=== PATIENT | female | born 1960 | race African-American/Black ===

== ENCOUNTER 2017-10-16 11:56 | Emergency (ER) | payer OTHER ==
[~2017-10-16] VITALS: Ht 165.1 cm; Wt 90.0 kg
[~2017-10-16 11:56] MED LIST: ANTIDEPRESSANT PO; COZA100T PO
[2017-10-16 11:57] VITALS: BP 137/74; PULSE 99; RESP 18; TEMP 98.6; O2SAT 97
[2017-10-16] MEDS ORDERED: IOHEXOL 350 MG/ML 10 ML VIAL (for RAD DIAG) IVCONTRAST ONE (11:57)
[2017-10-16 13:01] LABS: AUTOMATED NEUTROPHIL # 5.9 TH/MM3 (1.8-7.7); BASOPHIL % 0.3 % (0.0-2.0); EOSINOPHIL # 0.2 TH/MM3 (0-0.4); EOSINOPHIL % 1.7 % (0.0-4.0); HEMATOCRIT 40.8 % (35.0-46.0); HEMOGLOBIN 13.6 GM/DL (11.6-15.3); LYMPH % 34.6 % (9.0-44.0); LYMPHOCYTE # 3.5 TH/MM3 (1.0-4.8); MEAN CELL VOLUME 85.9 FL (80.0-100.0); MEAN CORPUSCULAR HEMOGLOBIN 28.6 PG (27.0-34.0); MEAN CORPUSCULAR HGB CONC 33.3 % (32.0-36.0); MEAN PLATELET VOLUME 8.2 FL (7.0-11.0); MONO % 5.7 % (0.0-8.0); MONOCYTE # 0.6 TH/MM3 (0-0.9); NEUT % 57.7 % (16.0-70.0); PLATELET COUNT 339 TH/MM3 (150-450); RED BLOOD COUNT 4.75 MIL/MM3 (4.00-5.30); RED CELL DISTRIBUTION WIDTH 14.7 % (11.6-17.2); WHITE BLOOD COUNT 10.2 TH/MM3 (4.0-11.0)
[2017-10-16] MEDS ORDERED: METF500T PO (13:05)
[2017-10-16] MEDS ORDERED: METO50TA PO (13:05)
[2017-10-16] MEDS ORDERED: LOSA100T2 PO (13:05)
[2017-10-16] MEDS ORDERED: BUPR150T3 PO (13:05)
[2017-10-16 13:10] LABS: BACTERIA, URINE RARE /hpf; BILIRUBIN, URINE NEG (NEG); BLOOD, URINE NEG (NEG); GLUCOSE,URINE NEG (NEG); HYALINE CAST, URINE 42 /lpf (RARE); KETONE, URINE NEG (NEG); MUCUS URINE FEW /lpf (OCC); NITRITE,URINE NEG (NEG); PH, URINE 6.5 (5.0-8.5); SQUAMOUS EPITHELIAL CELL URINE 1 /hpf (0-5); TRANSITIONAL EPI CELLS, URINE <1 /hpf; URINE COLOR YELLOW (YELLW/STRAW); URINE LEUKOCYTE ESTERASE NEG (NEG)
--- NOTE | 2017-10-16 13:12 | PD ---
HPI Chief Complaint: Abdominal Pain Time Seen by Provider: 13:10 Travel History International Travel<30 days: No Contact w/Intl Traveler<30days: No Traveled to known affect area: No History of Present Illness HPI 57-year-old Afro-[place] female presents to emergency Department with several day history of diarrhea and increasing right lower abdominal pain with radiation to the right back. Patient states no significant fever or chills. She denies urinary symptoms she denies vaginal symptoms. She has had no blood in her stool. No vomiting but has had some nausea. She describes the pain as dull to sharp, and constant. Patient denies previous abdominal surgery. Pain is currently 7 out of 10. She has no known drug allergies. PFSH Past Medical History Depression: Yes Cardiovascular Problems: Yes (HTN) Diabetes: Yes Patient Takes Glucophage: Yes (10/16/16 0900) Diminished Hearing: No Hypertension: Yes ?: Not Menopausal: Yes : 3 Para: 2 Miscarriage: 1 Past Surgical History Oral Surgery: Yes Social History Alcohol Use: Yes (occ) Tobacco Use: Yes (1 PPD) Substance Use: No Allergies-Medications (Allergen,Severity, Reaction): Coded Allergies: No Known Allergies (Verified , 03/03/14) Reported Meds & Prescriptions Reported Meds & Active Scripts Active Reported Bupropion HCl ER 24 HR (Bupropion HCl) 150 Mg Tab 150 Mg PO BID Metoprolol Tartrate 50 Mg Tab 50 Mg PO DAILY Losartan-Hydrochlorothiazide 100-25 Mg Tab 1 Tab PO DAILY Metformin (Metformin HCl) 500 Mg Tab 500 Mg PO BIDPC Review of Systems Except as stated in HPI: all other systems reviewed are Neg General / Constitutional: No: Fever, Chills Eyes: No: Visual changes HENT: No: Headaches Cardiovascular: No: Chest Pain or Discomfort Respiratory: No: Shortness of Breath Gastrointestinal: Positive: Nausea, Diarrhea, Abdominal Pain, Loss of Appetite , No: Vomiting, Hematemesis, Hematochezia, Constipation, Changes in Bowel Habits , Indigestion, Dysphagia Genitourinary: Positive: Flank Pain, No: Urgency, Frequency, Dysuria Musculoskeletal: No: Pain Skin: No Rash Neurologic: No: Weakness Psychiatric: No: Depression Endocrine: No: Polydipsia Hematologic/Lymphatic: No: Easy Bruising Physical Exam Narrative GENERAL: Moderately obese female in no obvious distress. SKIN: Warm and dry. Normal color. Normal turgor. No rash. HEAD: Atraumatic. Normocephalic. EYES: Pupils equal and round. No scleral icterus. No injection or drainage. ENT: No nasal bleeding or discharge. Mucous membranes pink and moist. Pharynx is clear. Airway is patent. NECK: Trachea midline. Supple nontender. CARDIOVASCULAR: Regular rate and rhythm. RESPIRATORY: No accessory muscle use. Clear to auscultation. Breath sounds equal bilaterally. GASTROINTESTINAL: Abdomen soft, mild to moderate nonspecific right lower quadrant tenderness, nondistended. Question right sided CVA tenderness. Negative Rocha sign. Hepatic and splenic margins not palpable. MUSCULOSKELETAL: Extremities without clubbing, cyanosis, or edema. No obvious deformities. NEUROLOGICAL: Awake and alert. No obvious cranial nerve deficits. Motor grossly within normal limits. Five out of 5 muscle strength in the arms and legs. Normal speech. PSYCHIATRIC: Appropriate mood and affect; insight and judgment normal. Data Data Last Documented VS Vital Signs Date Time Temp Pulse Resp B/P (MAP) Pulse Ox O2 Delivery O2 Flow Rate FiO2 10/16/17 15:24 85 18 110/67 (81) 95 Room Air 10/16/17 11:57 98.6 Orders Orders Complete Blood Count With Diff (10/16/17 12:04) Comprehensive Metabolic Panel (10/16/17 12:04) Lipase (10/16/17 12:04) Prothrombin Time / Inr (Pt) (10/16/17 12:04) Act Partial Throm Time (Ptt) (10/16/17 12:04) Urinalysis - C+S If Indicated (10/16/17 12:04) Ct Abd/Pel W Iv Contrast(Rout) (10/16/17 13:24) Iv Access Insert/Monitor (10/16/17 13:24) Ecg Monitoring (10/16/17 13:24) Oximetry (10/16/17 13:24) Ondansetron Inj (Zofran Inj) (10/16/17 13:30) Sodium Chlor 0.9% 1000 Ml Inj (Ns 1000 M (10/16/17 13:24) Sodium Chloride 0.9% Flush (Ns Flush) (10/16/17 13:30) Iohexol 350 Inj (Omnipaque 350 Inj) (10/16/17 11:57) C Diff Toxin Pcr (10/16/17 15:11) Labs Laboratory Tests Test 10/16/17 12:15 White Blood Count 10.2 TH/MM3 Red Blood Count 4.75 MIL/MM3 Hemoglobin 13.6 GM/DL Hematocrit 40.8 % Mean Corpuscular Volume 85.9 FL Mean Corpuscular Hemoglobin 28.6 PG Mean Corpuscular Hemoglobin Concent 33.3 % Red Cell Distribution Width 14.7 % Platelet Count 339 TH/MM3 Mean Platelet Volume 8.2 FL Neutrophils (%) (Auto) 57.7 % Lymphocytes (%) (Auto) 34.6 % Monocytes (%) (Auto) 5.7 % Eosinophils (%) (Auto) 1.7 % Basophils (%) (Auto) 0.3 % Neutrophils # (Auto) 5.9 TH/MM3 Lymphocytes # (Auto) 3.5 TH/MM3 Monocytes # (Auto) 0.6 TH/MM3 Eosinophils # (Auto) 0.2 TH/MM3 Basophils # (Auto) 0.0 TH/MM3 CBC Comment DIFF FINAL Differential Comment Prothrombin Time 10.7 SEC Prothromb Time International Ratio 1.1 RATIO Activated Partial Thromboplast Time 28.9 SEC Urine Color YELLOW Urine Turbidity CLEAR Urine pH 6.5 Urine Specific [place] 1.016 Urine Protein TRACE mg/dL Urine Glucose (UA) NEG mg/dL Urine Ketones NEG mg/dL Urine Occult Blood NEG Urine Nitrite NEG Urine Bilirubin NEG Urine Urobilinogen 2.0 MG/DL Urine Leukocyte Esterase NEG Urine RBC 1 /hpf Urine WBC 1 /hpf Urine Squamous Epithelial Cells 1 /hpf Urine Transitional Epithelial Cells <1 /hpf Urine Bacteria RARE /hpf Urine Hyaline Casts 42 /lpf Urine Mucus FEW /lpf Microscopic Urinalysis Comment CULT NOT INDICATED Blood Urea Nitrogen 5 MG/DL Creatinine 0.71 MG/DL Random Glucose 101 MG/DL Total Protein 8.3 GM/DL Albumin 3.4 GM/DL Calcium Level 8.6 MG/DL Alkaline Phosphatase 150 U/L Aspartate Amino Transf (AST/SGOT) 47 U/L Alanine Aminotransferase (ALT/SGPT) 29 U/L Total Bilirubin 0.4 MG/DL Sodium Level 138 MEQ/L Potassium Level 2.4 MEQ/L Chloride Level 99 MEQ/L Carbon Dioxide Level 30.9 MEQ/L Anion Gap 8 MEQ/L Estimat Glomerular Filtration Rate 103 ML/MIN Lipase 161 U/L [facility] Medical Decision Making Medical Screen Exam Complete: Yes Emergency Medical Condition: Yes Differential Diagnosis Abdominal pain. Renal colic. Pancreatitis. Appendicitis. Colitis. Diverticulitis. Narrative Course Patient is medically stable at time of exam. Labs ordered including CBC, CMP, lipase, urinalysis. CBC is unremarkable. Coagulation studies is unremarkable. Chemistry significant for potassium of 2.4, AST 47, alkaline phosphatase 150, total protein 8.3. Lipase is 161. Creatinine is normal at 0.75 with a BUN of 5 , and GFR 103. Urinalysis is unremarkable. CT the abdomen and pelvis with IV contrast was ordered. Patient is given 30 g KCl by mouth. CT shows no acute process to explain the patient's pain. Patient discussed with Dr. Miller who examined the patient. C. difficile stool sample is ordered. Patient will be treated with Cipro 500 mg twice a day 7 days. Patient also given metronidazole 500 mg 3 times a day 2 weeks. Patient is given KCl 20 mEq daily for the next week. Patient given tramadol 50 mg one every 6 hours when necessary pain #20. Patient should follow local primary care physician or return to the department if symptoms worsen as needed. Diagnosis Primary Impression: Diarrhea Qualified Codes: A09 - Infectious gastroenteritis and colitis, unspecified Additional Impressions: Abdominal pain Qualified Codes: R10.31 - Right lower quadrant pain Hypokalemia Referrals: Primary Care Physician Patient Instructions: Abdominal Pain (ED), Acute Diarrhea (ED), General Instructions Med/Other Pt SpecificInfo: Prescription(s) given Disposition: 01 DISCHARGE HOME Condition: Stable Alfredo Cruz Oct 16, 2017 13:12
[2017-10-16 13:13] LABS: INTERNATIONAL NORMALIZED RATIO 1.1 RATIO; PROTHROMBIN TIME - PATIENT 10.7 SEC (9.8-11.6)
[2017-10-16 13:23] LABS: ALBUMIN 3.4 GM/DL (3.4-5.0); ALKALINE PHOSPHATASE 150 U/L (45-117); ALT (GPT) 29 U/L (10-53); AST (GOT) 47 U/L (15-37); BICARBONATE 30.9 MEQ/L (21.0-32.0); BLOOD UREA NITROGEN 5 MG/DL (7-18); CALCIUM 8.6 MG/DL (8.5-10.1); CHLORIDE 99 MEQ/L (98-107); CREATININE 0.71 MG/DL (0.50-1.00); GLOMERULAR FILTRATION RATE 103 ML/MIN (>89); GLUCOSE,RANDOM 101 MG/DL (74-106); LIPASE 161 U/L (73-393); SODIUM (NA) 138 MEQ/L (136-145); TOTAL BILIRUBIN ADULT 0.4 MG/DL (0.2-1.0); TOTAL PROTEIN 8.3 GM/DL (6.4-8.2)
[2017-10-16] MEDS ORDERED: SODIUM CHLOR 0.9% 1000 ML INJ 1,000 ML IV SCH (13:24)
[2017-10-16] MEDS ORDERED: SODIUM CHLORIDE 0.9% FLUSH 10 ML FLUSH IV FLUSH PRN (13:30)
[2017-10-16] MEDS ORDERED: ONDANSETRON HCL 4 MG/2 ML VIAL IVP ONE (13:30)
--- NOTE | 2017-10-16 14:14 | RADRPT ---
EXAM DATE/TIME: 10/16/2017 13:59 [facility] COMPARISON: No previous studies available for comparison. INDICATIONS : Right lower quadrant pain IV CONTRAST: 70 cc Omnipaque 350 (iohexol) IV ORAL CONTRAST: No oral contrast ingested. RADIATION DOSE: 16.48 CTDIvol (mGy) MEDICAL HISTORY : Hypertension. Diabetes mellitus type 2. SURGICAL HISTORY : None. ENCOUNTER: Initial ACUITY: 1 day PAIN SCALE: 8/10 LOCATION: Right Abdomen TECHNIQUE: Volumetric scanning of the abdomen and pelvis was performed. Using automated exposure control and adjustment of the mA and/or kV according to patient size, radiation dose was kept as low as reasonably achievable to obtain optimal diagnostic quality images. DICOM format image data is av ailable electronically for review and comparison. FINDINGS: LOWER LUNGS: The visualized lower lungs are clear. LIVER: Homogeneously lower density without lesion. There is no dilation of the biliary tree. N o calcified gallstones. SPLEEN: Normal size without lesion. PANCREAS: Within normal limits. KIDNEYS: Normal in size and shape. There is no mass, stone or hydronephrosis. ADRENAL GLANDS: Within normal limits. VASCULAR: There is no aortic aneurysm. BOWEL/MESENTERY: The stomach, small bowel, and colon demonstrate no acute abnormality. There is no free intraperitoneal air or fluid. Extensive diverticulosis ABDOMINAL WALL: Within normal limits. RETROPERITONEUM: There is no lymphadenopathy. BLADDER: No wall thickening or mass. REPRODUCTIVE: Within normal limits. INGUINAL: There is no lymphadenopathy or hernia. MUSCULOSKELETAL: Within normal limits for patient age. CONCLUSION: Mildly fatty liver without evidence of focal mass. Diverticulosis without evidence of diverticulitis. Hussain Heck MD on October 16, 2017 at 14:11 Board Certified Radiologist. This report was verified electronically.
--- NOTE | 2017-10-16 15:17 | PD ---
Data Data Last Documented VS Vital Signs Date Time Temp Pulse Resp B/P (MAP) Pulse Ox O2 Delivery O2 Flow Rate FiO2 10/16/17 16:08 10/16/17 15:24 85 18 95 Room Air 10/16/17 11:57 98.6 Orders Orders Complete Blood Count With Diff (10/16/17 12:04) Comprehensive Metabolic Panel (10/16/17 12:04) Lipase (10/16/17 12:04) Prothrombin Time / Inr (Pt) (10/16/17 12:04) Act Partial Throm Time (Ptt) (10/16/17 12:04) Urinalysis - C+S If Indicated (10/16/17 12:04) Ct Abd/Pel W Iv Contrast(Rout) (10/16/17 13:24) Iv Access Insert/Monitor (10/16/17 13:24) Ecg Monitoring (10/16/17 13:24) Oximetry (10/16/17 13:24) Ondansetron Inj (Zofran Inj) (10/16/17 13:30) Sodium Chlor 0.9% 1000 Ml Inj (Ns 1000 M (10/16/17 13:24) Sodium Chloride 0.9% Flush (Ns Flush) (10/16/17 13:30) Iohexol 350 Inj (Omnipaque 350 Inj) (10/16/17 11:57) Ed Discharge Order (10/16/17 15:34) Labs Laboratory Tests Test 10/16/17 12:15 White Blood Count 10.2 TH/MM3 Red Blood Count 4.75 MIL/MM3 Hemoglobin 13.6 GM/DL Hematocrit 40.8 % Mean Corpuscular Volume 85.9 FL Mean Corpuscular Hemoglobin 28.6 PG Mean Corpuscular Hemoglobin Concent 33.3 % Red Cell Distribution Width 14.7 % Platelet Count 339 TH/MM3 Mean Platelet Volume 8.2 FL Neutrophils (%) (Auto) 57.7 % Lymphocytes (%) (Auto) 34.6 % Monocytes (%) (Auto) 5.7 % Eosinophils (%) (Auto) 1.7 % Basophils (%) (Auto) 0.3 % Neutrophils # (Auto) 5.9 TH/MM3 Lymphocytes # (Auto) 3.5 TH/MM3 Monocytes # (Auto) 0.6 TH/MM3 Eosinophils # (Auto) 0.2 TH/MM3 Basophils # (Auto) 0.0 TH/MM3 CBC Comment DIFF FINAL Differential Comment Prothrombin Time 10.7 SEC Prothromb Time International Ratio 1.1 RATIO Activated Partial Thromboplast Time 28.9 SEC Urine Color YELLOW Urine Turbidity CLEAR Urine pH 6.5 Urine Specific [place] 1.016 Urine Protein TRACE mg/dL Urine Glucose (UA) NEG mg/dL Urine Ketones NEG mg/dL Urine Occult Blood NEG Urine Nitrite NEG Urine Bilirubin NEG Urine Urobilinogen 2.0 MG/DL Urine Leukocyte Esterase NEG Urine RBC 1 /hpf Urine WBC 1 /hpf Urine Squamous Epithelial Cells 1 /hpf Urine Transitional Epithelial Cells <1 /hpf Urine Bacteria RARE /hpf Urine Hyaline Casts 42 /lpf Urine Mucus FEW /lpf Microscopic Urinalysis Comment CULT NOT INDICATED Blood Urea Nitrogen 5 MG/DL Creatinine 0.71 MG/DL Random Glucose 101 MG/DL Total Protein 8.3 GM/DL Albumin 3.4 GM/DL Calcium Level 8.6 MG/DL Alkaline Phosphatase 150 U/L Aspartate Amino Transf (AST/SGOT) 47 U/L Alanine Aminotransferase (ALT/SGPT) 29 U/L Total Bilirubin 0.4 MG/DL Sodium Level 138 MEQ/L Potassium Level 2.4 MEQ/L Chloride Level 99 MEQ/L Carbon Dioxide Level 30.9 MEQ/L Anion Gap 8 MEQ/L Estimat Glomerular Filtration Rate 103 ML/MIN Lipase 161 U/L MDM Supervised Visit with KIMBERLY: Yes Narrative Course I, Dr. Miller, have reviewed the advance practice practitioner's documentation and am in agreement, met with the patient face to face, made the diagnosis, and the medical decision making was done by me. *My assessment and Findings: Patient with benign abdomen, blebs reassuring. Stable for discharge Scripts Tramadol (Tramadol) 50 Mg Tab 50 MG PO Q6H Y for PAIN, #20 TAB 0 Refills Prov: Ashish Miller MD 10/16/17 Potassium Chloride ER (K-Tab) 20 Meq Tab 20 MEQ PO DAILY for Electrolyte Replacement, #7 TAB 0 Refills Prov: Ashish Miller MD 10/16/17 Metronidazole (Metronidazole) 500 Mg Tab 500 MG PO TID for Infection for 14 Days, TAB 0 Refills Prov: Ashish Miller MD 10/16/17 Ciprofloxacin (Cipro) 500 Mg Tab 500 MG PO BID for Infection for 7 Days, #14 TAB 0 Refills Prov: Ashish Miller MD 10/16/17 Condition: Stable Ashish Miller MD Oct 16, 2017 15:17
[2017-10-16 15:24] VITALS: BP 110/67; PULSE 85; RESP 18; O2SAT 95
[2017-10-16] MEDS ORDERED: METR1TAB76 PO (15:33)
[2017-10-16] MEDS ORDERED: POTA1TAB4 PO (15:33)
[2017-10-16] MEDS ORDERED: CIPR-9 PO (15:33)
[2017-10-16] MEDS ORDERED: TRAM50TA PO (15:33)
== END 2017-10-16 16:10 | disposition home or self-care (01) ==
LOC: NEPD 11:56
DX: R19.7 Diarrhea, unspecified (principal); A09 Infectious gastroenteritis and colitis, unspecified; R10.31 Right lower quadrant pain; E87.6 Hypokalemia; I10 Essential (primary) hypertension; E11.9 Type 2 diabetes mellitus without complications; Z79.84 Long term (current) use of oral hypoglycemic drugs; F17.210 Nicotine dependence, cigarettes, uncomplicated
CPT/HCPCS: 74177; 80053; 81001; 83690; 85025; 85610; 85730; 96361; 96374; 99285; J2405; J7030; Q9967

== ENCOUNTER 2017-12-25 09:36 | Emergency (ER) | payer OTHER ==
[~2017-12-25] VITALS: Ht 165.1 cm; Wt 90.0 kg
[~2017-12-25 09:36] MED LIST changes: -ANTIDEPRESSANT PO; +BUPR150T3 PO; +CIPR-9 PO; -COZA100T PO; +LOSA100T2 PO; +METF500T PO; +METO50TA PO; +METR1TAB76 PO; +POTA1TAB4 PO; +TRAM50TA PO
[2017-12-25 09:57] VITALS: BP 127/63; PULSE 97; RESP 16; TEMP 98.2; O2SAT 96
[2017-12-25] MEDS ORDERED: MEDR4PAK PO (11:06)
[2017-12-25] MEDS ORDERED: ROBA500T PO (11:06)
[2017-12-25] MEDS ORDERED: NAPR500T2 PO (11:06)
--- NOTE | 2017-12-25 11:06 | PD ---
HPI Chief Complaint: Back/ Neck Pain or Injury Time Seen by Provider: 10:39 Travel History International Travel<30 days: No Contact w/Intl Traveler<30days: No Traveled to known affect area: No History of Present Illness HPI 57-year-old female presents to the emergency department with complaint of right- sided low back pain with sciatica 2 days. Has history of sciatica for over a year. Denies injury. Denies heavy lifting or straining. Says she stands a lot at her work. Denies encopresis, incontinence, saddle anesthesias. Denies IV drug use or cancer. Denies abdominal pain, fever, vomiting. Denies paresthesias, loss of sensation, decreased range of motion, decreased strength to bilateral lower extremity's. Patient is ambulatory with a guarded gait to the right lower extremity in the hallway. Has tried taking ibuprofen for symptom management. Rates pain 8/10. Describes as sharp and shooting sensation. Pain radiates down the back of the right buttocks and leg. Sometimes causes paresthesias of the right thigh. Aggravated with standing up, walking, palpation to the area. Decreased while at rest. Has a primary care provider that she can follow-up with. No known allergies. Reports history of diabetes type 2 and takes metformin. Has no other medical complaints. No other modifying factors or associated signs and symptoms. PFSH Past Medical History Depression: Yes Cardiovascular Problems: Yes (HTN) Diabetes: Yes Diminished Hearing: No Hypertension: Yes ?: Not Menopausal: Yes : 3 Para: 2 Miscarriage: 1 Past Surgical History Oral Surgery: Yes Social History Alcohol Use: Yes (occ) Tobacco Use: Yes (1 PPD) Substance Use: No Allergies-Medications (Allergen,Severity, Reaction): Coded Allergies: No Known Allergies (Verified Adverse Reaction, Unknown, 12/25/17) Reported Meds & Prescriptions Reported Meds & Active Scripts Active Medrol Dosepak (Methylprednisolone) 4 Mg Dspk 4 Mg PO DIRECTED Per Pharmacist direction Robaxin (Methocarbamol) 500 Mg Tab 500 Mg PO QID PRN Naproxen 500 Mg Tab 500 Mg PO BID PRN Tramadol (Tramadol HCl) 50 Mg Tab 50 Mg PO Q6H PRN K-Tab (Potassium Chloride) 20 Meq Tab 20 Meq PO DAILY Metronidazole 500 Mg Tab 500 Mg PO TID 14 Days Cipro (Ciprofloxacin HCl) 500 Mg Tab 500 Mg PO BID 7 Days Reported Bupropion HCl ER 24 HR (Bupropion HCl) 150 Mg Tab 150 Mg PO BID Metoprolol Tartrate 50 Mg Tab 50 Mg PO DAILY Losartan-Hydrochlorothiazide 100-25 Mg Tab 1 Tab PO DAILY Metformin (Metformin HCl) 500 Mg Tab 500 Mg PO BIDPC Review of Systems Except as stated in HPI: all other systems reviewed are Neg Physical Exam Narrative GENERAL: Well-nourished, well-developed black female patient, in no acute distress; afebrile, nontoxic-appearing SKIN: Warm and dry. HEAD: Atraumatic. Normocephalic. EYES: Pupils equal and round. No scleral icterus. No injection or drainage. ENT: Mucosa pink and moist. Airway patent. NECK: Trachea midline. CARDIOVASCULAR: Regular rate. RESPIRATORY: No accessory muscle use. GASTROINTESTINAL: Rounded. MUSCULOSKELETAL: Bilateral lower extremities supple and non-tense with 2+ pedal pulses and sensory intact; with full range of motion and 5/5 strength. 2 + DTRs bilaterally. Active dorsiflexion and extension of bilateral feet. Right straight leg raise is positive for low back pain. Ambulatory in room with guarded gait to the right lower extremity. Sitting up in bed at 90. No obvious deformities. No clubbing. No cyanosis. No edema. BACK: No midline point tenderness on palpation of the lumbar spine. Tenderness on palpation of right lumbar iliosacral area. No obvious deformities. NEUROLOGICAL: Awake and alert. Oriented 3. No obvious cranial nerve deficits. Motor grossly within normal limits. Normal speech. Moves all extremities. 5/5 strength to all extremities. Sensory intact. PSYCHIATRIC: Appropriate mood and affect; insight and judgment normal. Data Data Last Documented VS Vital Signs Date Time Temp Pulse Resp B/P (MAP) Pulse Ox O2 Delivery O2 Flow Rate FiO2 12/25/17 09:57 98.2 97 16 127/63 (84) 96 Orders Orders Methocarbamol (Robaxin) (12/25/17 11:15) Naproxen (Naprosyn) (12/25/17 11:15) Ed Discharge Order (12/25/17 11:08) MDM Medical Decision Making Medical Screen Exam Complete: Yes Emergency Medical Condition: Yes Medical Record Reviewed: Yes Differential Diagnosis Chronic low back pain, acute exacerbation of chronic low back pain, right-sided sciatica, low back strain Narrative Course 57-year-old female with history of sciatica with acute exacerbation of right- sided low back pain with sciatica. Denies encopresis, incontinence, saddle anesthesias. Denies fever, vomiting. Denies IV drug use or cancer. Patient is ambulatory in the hallway with a guarded gait to the right lower extremity. No midline tenderness on palpation of the lumbar spine. Neuro exam is unremarkable. Naproxen and Robaxin ordered. Naproxen, Robaxin, Medrol Dosepak prescribed for home. Instructed patient to follow up with primary care provider. Patient verbalizes understanding and agreement with treatment plan. Patient is medically cleared and stable for discharge. Discussed reasons to return to the emergency department. Patient agrees with treatment plan. The patients vital signs are stable and the patient is stable for outpatient follow- up and treatment. Patient discharged home, stable and in no acute distress. Diagnosis Primary Impression: Right-sided low back pain with sciatica Qualified Codes: M54.41 - Lumbago with sciatica, right side Referrals: [facility] Neurologist Primary Care Physician Patient Instructions: Acute Low Back Pain (ED), General Instructions, Sciatica (ED) Additional Instructions: Tylenol or ibuprofen as directed and as needed for pain Robaxin as prescribed and as needed for muscle spasms Heating pad and/or ice to affected area to reduce pain Avoid aggravating activities; increase activity as tolerated Follow-up with primary care provider Return to emergency department immediately with worsening of symptoms Med/Other Pt SpecificInfo: Prescription(s) given Scripts Methylprednisolone Dosepak (Medrol Dosepak) 4 Mg Dspk 4 MG PO DIRECTED, #1 DSPK 0 Refills Per Pharmacist direction Prov: Leslee Tomlinson 12/25/17 Methocarbamol (Robaxin) 500 Mg Tab 500 MG PO QID Y for MUSCLE SPASM, #30 TAB 0 Refills Prov: Leslee Tomlinson 12/25/17 Naproxen (Naproxen) 500 Mg Tab 500 MG PO BID Y for PAIN SCALE 1 TO 10, #20 TAB 0 Refills Prov: Leslee Tomlinson 12/25/17 Disposition: 01 DISCHARGE HOME Condition: Stable Leslee Tomlinson Dec 25, 2017 11:06
[2017-12-25] MEDS ORDERED: METHOCARBAMOL 500 MG TAB PO ONE (11:15)
[2017-12-25] MEDS ORDERED: NAPROXEN 500 MG TAB PO ONE (11:15)
== END 2017-12-25 11:24 | disposition home or self-care (01) ==
LOC: NEPK 09:36
DX: M54.41 Lumbago with sciatica, right side (principal); E11.9 Type 2 diabetes mellitus without complications; I10 Essential (primary) hypertension; F32.9 Major depressive disorder, single episode, unspecified; F17.200 Nicotine dependence, unspecified, uncomplicated; Z79.899 Other long term (current) drug therapy
CPT/HCPCS: 99283